=== PATIENT | male | born 1945 | race Caucasian/White ===

== ENCOUNTER 2016-11-18 14:18 | Emergency (ER) | payer MEDICARE, OTHER ==
[~2016-11-18] VITALS: Ht 182.9 cm; Wt 100.0 kg
[2016-11-18 14:20] VITALS: BP 153/107; TEMP 98
[2016-11-18] MEDS ORDERED: HYZAAR 25 MG-101 TAB PO (15:01)
[2016-11-18] MEDS ORDERED: FLOMAX 0.40.4 MG/CAP PO (15:40)
[2016-11-18 15:44] LABS: PH 6 (5-8); SQUAMOUS EPITHELIAL None Seen /hpf; URINE APPEARANCE Clear; URINE BACTERIA None Seen /hpf; URINE BILIRUBIN Negative (NEGATIVE); URINE BLOOD Negative (NEGATIVE); URINE COLOR Yellow; URINE GLUCOSE Negative (NEGATIVE); URINE KETONE Negative (NEGATIVE); URINE RBC 0-2 /hpf; URINE WBC 0-2 /hpf
[2016-11-18 15:55] VITALS: PULSE 84
== END 2016-11-18 16:14 | disposition home or self-care (01) ==
LOC: COL.ER 14:18
PROVIDERS: Physician Assistant
DX: R33.9 Retention of urine, unspecified (principal)